=== PATIENT | female | born 1950 | race Caucasian/White ===

== ENCOUNTER 2018-06-29 06:13 | Emergency (ER) | payer MEDICARE, OTHER ==
[2018-06-29] MEDS ORDERED: ACETAMINOPHEN 325 MG TABLET PO ONE (06:31)
[2018-06-29] MEDS ORDERED: NORMAL SALINE 1000 ML 1,000 ML IV ONE ×2 (06:37→10:12)
--- NOTE | 2018-06-29 06:39 | ER Document Report ---
Doctor's Note Notes: 06/29/18 06:38 Performed a quick triage evaluation of the patient. Patient is a 67-year-old female who presents with complaint of fever and feeling unwell. She was seen 2 days ago at urgent care because she is having burning with urination flexion a UTI. She was diagnosed with UTI and placed on nitrofurantoin. Since then she is continued have some burning. She says reduce some when she takes Azo however the burning does return. She has had subjective fevers at home. No vomiting. No abdominal pain no chest pain. Some coughing. No other complaints at this time. Clinically the patient actually looks very well despite having some mild tachycardia. We will give her some Tylenol for fever. Labs have been ordered. I suspect that she most likely has a continued UTI that may require different antibiotic. I have ordered some IV fluids. Dictation of this chart was performed using voice recognition software; therefore, there may be some unintended grammatical errors.
--- NOTE | 2018-06-29 07:07 | RADIOLOGY REPORT (SQ) ---
EXAM DESCRIPTION: XR CHEST 1 VIEW COMPLETED DATE/TME: 06/29/2018 06:37 CLINICAL HISTORY: 67 years Female, fever, cough COMPARISON: None. NUMBER OF VIEWS/TECHNIQUE: 1/AP FINDINGS: Adequate lung volume, small bandlike atelectasis or scar of the left midlung field., normal cardiac silhouette, atherosclerosis, and intact bony thorax. IMPRESSION: No acute cardiopulmonary findings.
[2018-06-29 07:13] LABS: ABSOLUTE BASOPHILS # (AUTO) 0.1 10^3/uL (0.0-0.2); ABSOLUTE MONOCYTES (AUTO) 0.9 10^3/uL (0.1-1.4); ABSOLUTE NEUT (AUTO) 14.5 10^3/uL (1.7-8.2); BASOPHILS % (AUTO) 0.4 % (0-2); EOSINOPHILS % (AUTO) 5.6 % (0-6); HEMATOCRIT 42.2 % (36.0-47.0); LYMPHOCYTES % (AUTO) 5.5 % (13-45); MEAN CORPUSCULAR HEMOGLOBIN 29.1 pg (27.0-33.4); MEAN CORPUSCULAR HGB CONC 33.2 g/dL (32.0-36.0); MEAN CORPUSCULAR VOLUME 88 fl (80-97); MONOCYTES % (AUTO) 5.3 % (3-13); PLATELET COUNT 247 10^3/uL (150-450); RED BLOOD COUNT 4.83 10^6/uL (3.72-5.28); RED CELL DISTRIBUTION WIDTH 14.3 % (11.5-14.0); SEGMENTED NEUTROPHILS % (AUTO) 83.2 % (42-78); TOTAL CELLS COUNTED % (AUTO) 100 %; WHITE BLOOD COUNT 17.4 10^3/uL (4.0-10.5)
[2018-06-29 07:16] LABS: APPEARANCE,URINE CLEAR; BILIRUBIN,URINE NEGATIVE (NEGATIVE); GLUCOSE, URINE NEGATIVE (NEGATIVE); KETONES,URINE NEGATIVE (NEGATIVE); LEUKOCYTE ESTERASE,URINE NEGATIVE (NEGATIVE); NITRITE,URINE POSITIVE (NEGATIVE); PROTEIN,URINE NEGATIVE (NEGATIVE); URINE SPECIFIC GRAVITY 1.014
[2018-06-29 07:20] LABS: INTERNATIONAL RATION (INR) 1.03
[2018-06-29 07:21] LABS: COLOR,URINE ORANGE
[2018-06-29 07:35] LABS: ALANINE AMINOTRANSFERASE 40 U/L (9-52); ALBUMIN 3.9 g/dL (3.5-5.0); ALKALINE PHOSPHATASE 65 U/L (38-126); ANION GAP 16 (5-19); ASPARTATE AMINO TRANSFERASE 25 U/L (14-36); BILIRUBIN,TOTAL 1.1 mg/dL (0.2-1.3); BLOOD UREA NITROGEN 23 mg/dL (7-20); CALCIUM 9.3 mg/dL (8.4-10.2); CARBON DIOXIDE 24 mmol/L (22-30); CHLORIDE 103 mmol/L (98-107); GLUCOSE 135 mg/dL (75-110); POTASSIUM 3.9 mmol/L (3.6-5.0); SODIUM 142.6 mmol/L (137-145); TOTAL PROTEIN 6.9 g/dL (6.3-8.2)
--- NOTE | 2018-06-29 07:51 | EKG REPORT ---
SEVERITY:- BORDERLINE ECG - SINUS RHYTHM BORDERLINE LEFT AXIS DEVIATION BORDERLINE R WAVE PROGRESSION, ANTERIOR LEADS : Confirmed by: Luis Enrique Campuzano MD 29-Jun-2018 07:51:09
[2018-06-29] MEDS ORDERED: CEFTRIAXONE 1 GM/D5W RTU 1 GM/50 ML RTUPB IV ONE (07:53)
[2018-06-29] MEDS ORDERED: KETOROLAC TROMETHAMINE INJ/PF 30 MG/1 ML SDV IV ONE (08:04)
--- NOTE | 2018-06-29 08:39 | ER Document Report ---
ED Fever - General Chief Complaint: Fever Stated Complaint: CHILLD/FEVER/BODY ACHE Time Seen by Provider: 06/29/18 06:37 Notes: 67-year-old female to the emergency department chief complaint of fever and generally not feeling well. Patient was recently started on antibiotics for UTI. Has been taking nitrofurantoin for the last couple of days but does not seem to be helping. Does have dysuria. Now pain is up into her back. Some nausea but no vomiting. Fever at home. Discomfort in the lower pelvic region. Denies any blood in her urine. Patient states that she had some Toradol at the urgent care and gave her a headache. Denies any neck stiffness but does have a headache. Does have a mild cough. TRAVEL OUTSIDE OF THE [place] IN LAST 30 DAYS: No - HPI Onset/Duration: Gradual, Persistent, Worse Quality of pain: Achy, Dull Severity: Mild Pain Level: 2 Context: Urinary tract infection Associated symptoms: Fever, Headache - Related Data Allergies/Adverse Reactions: amlodipine Allergy (Verified 06/29/18 06:19) atorvastatin [From Lipitor] Allergy (Verified 06/29/18 06:19) levofloxacin Allergy (Verified 06/29/18 06:19) sulfamethoxazole [From Bactrim] Allergy (Verified 06/29/18 06:19) trimethoprim [From Bactrim] Allergy (Verified 06/29/18 06:19) Past Medical History - General Information source: Patient - Social History Smoking Status: Never Smoker Cigarette use (# per day): No Frequency of alcohol use: None Drug Abuse: None Lives with: Family Family History: Reviewed & Not Pertinent Patient has suicidal ideation: No Patient has homicidal ideation: No - Past Medical History Cardiac Medical History: Reports: Hx Hypercholesterolemia, Hx Hypertension Pulmonary Medical History: Reports: Hx Bronchitis Renal/ Medical History: Reports: Hx Kidney Stones. Denies: Hx Peritoneal Dialysis GI Medical History: Reports: Hx Gastroesophageal Reflux Disease Musculoskeletal Medical History: Reports Hx Arthritis Past Surgical History: Reports: Hx Appendectomy, Hx Hysterectomy Review of Systems - Review of Systems Notes: Constitutional: Patient is complaining of fever, chills and generally not feeling well EENT: denies: Eye discharge, Blurred vision, Tearing, Double vision, Nose congestion, Nose discharge, Throat swelling, Mouth pain Cardiovascular: denies: Palpitations, Heart racing, Orthopnea, Dyspnea, Chest pain Respiratory: denies: Cough, Hurts to breathe, Wheezing, Shortness of breath Gastrointestinal: denies: Abdominal pain, Diarrhea, Nausea, Vomiting, Black stools, bright red blood in stool Genitourinary: Patient does complain of some flank pain and dysuria. Denies any hematuria. Musculoskeletal: denies: Joint pain, Joint swelling, Muscle pain, Muscle stiffness,. Patient does complain of some mild bilateral low back pain Hematologic/Lymphatic: denies: Anemia, Easy bleeding, Easy bruising, Blood clots Neurological/Psychological: denies: Confusion, Dementia, Depression, Loss of consciousness Skin: No lesions, no masses, no skin breakdown, no abscesses Physical Exam - Vital signs Vitals: Temp Pulse Resp BP Pulse Ox 100.1 F 115 H 18 142/72 H 94 06/29/18 06:22 06/29/18 06:22 06/29/18 06:22 06/29/18 06:22 06/29/18 06:22 Interpretation: Tachycardic - General General appearance: Appears well, Alert - HEENT Head: Normocephalic, Atraumatic Eyes: Normal Pupils: PERRL - Respiratory Respiratory status: No respiratory distress Chest status: Nontender Breath sounds: Normal Chest palpation: Normal - Cardiovascular Rhythm: Tachycardia Heart sounds: Normal auscultation Murmur: No - Abdominal Inspection: Normal Distension: No distension Bowel sounds: Normal Tenderness: Tender - Very mild discomfort in the suprapubic area with no guarding or rebound. Organomegaly: No organomegaly - Back Back: Normal, CVA tenderness - Very mild bilateral CVA tenderness. - Extremities General upper extremity: Normal inspection, Nontender, Normal color, Normal ROM , Normal temperature General lower extremity: Normal inspection, Nontender, Normal color, Normal ROM , Normal temperature, Normal weight bearing. No: Brittany's sign - Neurological Neuro grossly intact: Yes Cognition: Normal Orientation: AAOx4 Kle[place] Coma Scale Eye Opening: Spontaneous [place] Coma Scale Verbal: Oriented [place] Coma Scale Motor: Obeys Commands [place] Coma Scale Total: 15 Speech: Normal Motor strength normal: LUE, RUE, LLE, RLE Sensory: Normal - Psychological Associated symptoms: Normal affect, Normal mood - Skin Skin Temperature: Warm Skin Moisture: Dry Skin Color: Normal Course - Re-evaluation Re-evalutation: 06/29/18 10:06 She does have an elevated WBC on the tachycardic but that has resolved with IV fluids and antibiotics and antipyretics. This patient is very well-appearing. Her urine shows nitrites.. Has been on antibiotics so partially treated. I gave initial dose of IV Rocephin. I will discharge her on some antibiotics. Patient has been advised to return if symptoms are getting worse, fevers getting worse, chills worse worsening back pain vomiting or other concerns. Of note, patient did have a history of stones however she has no hematuria so the likelihood of this being an infected and obstructed stone is quite low however I did discuss that with the patient in the event the symptoms are getting worse she may require CT scan please do not hesitate to return especially if symptoms are getting worse. 06/29/18 10:09 06/29/18 10:09 Laboratory 06/29/18 06/29/18 06/29/18 06:45 06:46 06:46 WBC 17.4 H RBC 4.83 Hgb 14.0 Hct 42.2 MCV 88 MCH 29.1 MCHC 33.2 RDW 14.3 H Plt Count 247 Seg Neutrophils % 83.2 H Lymphocytes % 5.5 L Monocytes % 5.3 Eosinophils % 5.6 Basophils % 0.4 Absolute Neutrophils 14.5 H Absolute Lymphocytes 1.0 Absolute Monocytes 0.9 Absolute Eosinophils 1.0 H Absolute Basophils 0.1 PT 14.0 INR 1.03 Sodium Potassium Chloride Carbon Dioxide Anion Gap BUN Creatinine Est GFR ( Amer) Est GFR (Non-Af Amer) Glucose POC Glucose 128 H Lactic Acid Calcium Total Bilirubin Direct Bilirubin Neonat Total Bilirubin Neonat Direct Bilirubin Neonat Indirect Bili AST ALT Alkaline Phosphatase Total Protein Albumin Urine Color Urine Appearance Urine pH Ur Specific [place] Urine Protein Urine Glucose (UA) Urine Ketones Urine Blood Urine Nitrite Urine Bilirubin Urine Urobilinogen Ur Leukocyte Esterase Urine WBC (Auto) Urine RBC (Auto) Squamous Epi Cells Auto Urine Mucus (Auto) Urine Ascorbic Acid 06/29/18 06/29/18 06/29/18 06:46 06:46 06:46 WBC RBC Hgb Hct MCV MCH MCHC RDW Plt Count Seg Neutrophils % Lymphocytes % Monocytes % Eosinophils % Basophils % Absolute Neutrophils Absolute Lymphocytes Absolute Monocytes Absolute Eosinophils Absolute Basophils PT INR Sodium 142.6 Potassium 3.9 Chloride 103 Carbon Dioxide 24 Anion Gap 16 BUN 23 H Creatinine 1.08 Est GFR ( Amer) > 60 Est GFR (Non-Af Amer) 50 L Glucose 135 H POC Glucose Lactic Acid 1.7 Calcium 9.3 Total Bilirubin 1.1 Direct Bilirubin 0.0 Neonat Total Bilirubin Not Reportable Neonat Direct Bilirubin Not Reportable Neonat Indirect Bili Not Reportable AST 25 ALT 40 Alkaline Phosphatase 65 Total Protein 6.9 Albumin 3.9 Urine Color ORANGE Urine Appearance CLEAR Urine pH 5.0 Ur Specific [place] 1.014 Urine Protein NEGATIVE Urine Glucose (UA) NEGATIVE Urine Ketones NEGATIVE Urine Blood NEGATIVE Urine Nitrite POSITIVE H Urine Bilirubin NEGATIVE Urine Urobilinogen 4.0 H Ur Leukocyte Esterase NEGATIVE Urine WBC (Auto) 1 Urine RBC (Auto) 1 Squamous Epi Cells Auto 2 Urine Mucus (Auto) RARE Urine Ascorbic Acid NEGATIVE Chest X-Ray 06/29/18 06:37 IMPRESSION: No acute cardiopulmonary findings. 06/29/18 12:58 Repeat lactate has been performing it has come down. Patient's heart rate is 77. Blood pressure is acceptable. Will DC at this time. - Vital Signs Vital signs: Temp Pulse Resp BP Pulse Ox 98.0 F 98 19 106/65 97 06/29/18 10:09 06/29/18 10:09 06/29/18 10:09 06/29/18 10:09 06/29/18 10:09 - Laboratory Result Diagrams: 06/29/18 06:46 06/29/18 06:46 Laboratory results interpreted by me: 06/29/18 06/29/18 06/29/18 06:45 06:46 06:46 WBC 17.4 H RDW 14.3 H Seg Neutrophils % 83.2 H Lymphocytes % 5.5 L Absolute Neutrophils 14.5 H Absolute Eosinophils 1.0 H BUN 23 H Est GFR (Non-Af Amer) 50 L Glucose 135 H POC Glucose 128 H Urine Nitrite Urine Urobilinogen 06/29/18 06:46 WBC RDW Seg Neutrophils % Lymphocytes % Absolute Neutrophils Absolute Eosinophils BUN Est GFR (Non-Af Amer) Glucose POC Glucose Urine Nitrite POSITIVE H Urine Urobilinogen 4.0 H - EKG Interpretation by Me EKG shows normal: Sinus rhythm, [place], Intervals, QRS Complexes, ST-T Waves Rate: Tachycardia - [id number] Discharge - Discharge Clinical Impression: Pyelonephritis Condition: Good Disposition: HOME, SELF-CARE Instructions: Pyelonephritis ([facility]) Additional Instructions: In the event that you have worsening symptoms, worsening fever, worsening pain, vomiting, heart is racing, feeling like you are going to pass out or for any worsening symptoms or concerns it will be very important that you return for repeat evaluation. Prescriptions: Cefdinir [Omnicef 300 mg Capsule] 1 cap PO BID 10 Days #20 capsule Hydrocodone/Acetaminophen [[place] 5-325 mg Tablet] 1 tab PO TID PRN 3 Days #9 tablet PRN Reason: For Breakthrough Pain Phenazopyridine HCl [Pyridium 100 Mg Tablet] 100 mg PO TID 3 Days #9 tablet
[2018-06-29] MEDS ORDERED: CEFTRIAXONE SODIUM 1,000 MG in NORMAL SALINE 50 ML IV ONE (09:00)
[2018-06-29] MEDS ORDERED: HYDROCODONE/ACETAMINOPHEN 5-325 MG TABLET PO ONE (10:02)
[2018-06-29] MEDS ORDERED: FENTANYL CITRATE INJ/PF 100 MCG/2 ML AMPUL IV ONE (10:02)
[2018-06-29 10:10] VITALS: BP 106/65
== END 2018-06-29 13:20 | disposition home or self-care (01) ==
LOC: ER 06:13
DX: N12 Tubulo-interstitial nephritis, not specified as acute or chronic (principal); R50.9 Fever, unspecified; M79.1 Myalgia; E78.00 Pure hypercholesterolemia, unspecified; I10 Essential (primary) hypertension; Z88.3 Allergy status to other anti-infective agents; Z87.442 Personal history of urinary calculi; Z90.710 Acquired absence of both cervix and uterus
CPT/HCPCS: 93005; 99284; 96361; 96365; 96366; 36415; 87086; 82962; 85025; 85610; 80053; 81001; 83605; 71045; 93010; A9270 ×2; J0696; J7030